=== PATIENT | male | born 1955 | race Caucasian/White ===

== ENCOUNTER 2019-04-12 09:48 | Day surgery (SDC) | payer MEDICAID ==
[~2019-04-12 09:48] MED LIST: Lactated Ringers 1,000 ML IV SCH
[2019-04-12] MEDS ORDERED: Propofol 200 MG/20 ML SDV ONE ×2 (10:23→12:26)
[2019-04-12] MEDS ORDERED: Midazolam 1 MG/ML 2 ML SDV ONE (10:23)
[2019-04-12] MEDS ORDERED: fentaNYL 100 MCG/2 ML SDV ONE (10:23)
[2019-04-12] MEDS: Lactated Ringers 1,000 ML IV SCH (10:28)
--- NOTE | 2019-04-15 09:21 | OR ---
DATE OF PROCEDURE: 04/12/2019 SURGEON: Ramirez Lopez MD PREOPERATIVE DIAGNOSIS: Colon cancer screening. POSTOPERATIVE DIAGNOSIS: Diverticulosis. PROCEDURE: Colonoscopy to the cecum. ANESTHESIA: IV anesthesia with monitored anesthesia care. INDICATION: This 64-year-old white male is referred for a screening colonoscopy. He says his last colonoscopic exam was done 10 years ago. I counseled him for the procedure, including risks and alternatives, and gave his informed consent to proceed. DESCRIPTION OF PROCEDURE: The patient was placed in the left lateral decubitus position. IV anesthesia was administered by the Anesthesia Service. Time-out was held. A rectal exam was performed, which was unremarkable. The flexible video Olympus colonoscope was introduced through his anus, up his rectum, and out his colon all the way to the cecum. Once the cecum was reached, the scope was slowly withdrawn, examining the mucosa throughout. No mucosal abnormalities were noted, except for a few left-sided diverticula. There was no bleeding or inflammation associated with them. In the rectum, the scope was retroflexed with the distal rectum appearing unremarkable. The scope was straightened and removed. He tolerated the procedure well. Ramirez Lopez MD /[id number]
--- NOTE | 2019-04-17 08:28 | ANES ---
DATE OF SERVICE: 04/16/2019 ADDENDUM: I actually gave Mr. Miranda a total of 400 mg of propofol throughout the colonoscopy instead of 200. Camilo Pa CRNA /[id number]
== END 2019-04-12 14:00 | disposition home or self-care (01) ==
LOC: JP.SDS 09:48
PROVIDERS: ATTEND Surgery
DX: Z12.11 Encounter for screening for malignant neoplasm of colon (principal); K57.30 Diverticulosis of large intestine without perforation or abscess without bleeding; E78.00 Pure hypercholesterolemia, unspecified
CPT/HCPCS: 45378; J2250; J2704; J3010; J7120